=== PATIENT | female | born 1955 | race Caucasian/White ===

== ENCOUNTER → 2018-11-14 07:10 | Outpatient (CLI) | payer OTHER, SELFPAY ==
[2018-10-31 14:43] VITALS: BMI 32.5
[2018-11-13 14:32] VITALS: BMI 33.3
--- NOTE | 2018-11-14 18:33 | STRESSREP ---
Stress Test Report Exercise myocardial perfusion stress test. 63-year-old lady with a history of chest pain. Resting EKG demonstrates sinus bradycardia with a rate of 54 bpm normal intervals are noted resting blood pressure 120/78 mmHg. The patient exercised according to regular Paul protocol for a total duration of 9 minutes. The maximum heart rate attained was 136 bpm which was 85% of maximum predicted heart rate the maximum workload was 10.1 metabolic equivalents. At rest there were no ST to T wave changes noted suggest ischemia at peak exercise upsloping ST changes were noted with noted denote any ischemia. The resting blood pressure 120/78 with a peak blood pressure of 148/84. No clinical angina was noted. Myocardial perfusion protocol. 11.2 mCi of technetium 99m sestamibi was injected at rest. The patient exercised according to regular Paul protocol for total duration of 9 minutes at peak exercise 34.0 mCi of technetium 99m sestamibi was injected stress images were obtained stress and rest images were reconstructed and compared in the short axis vertical and horizontal long axis. Gated images were also obtained Perfusion SPECT analysis: Review of the stress images demonstrate normal uptake of tracer noted in all areas of the myocardium. The resting images similarly demonstrate normal uptake of tracer noted in all areas of the myocardium. No areas of reversibility are noted suggest ischemia no previous infarct is noted. Gated SPECT analysis: The gated ejection fraction is noted to be 76%. Conclusion: Normal exercise myocardial perfusion stress test at a high workload. Preserved ejection fraction. Good functional aerobic capacity.
== END ==
PROVIDERS: Family Provider Family Medicine; PCP Family Medicine; Referring Provider Internal Medicine Cardiovascular Disease; Visit Provider Internal Medicine Cardiovascular Disease
DX: I48.0 Paroxysmal atrial fibrillation (principal); R06.02 Shortness of breath
CPT/HCPCS: 78452; 93017; A9500; A4216

== ENCOUNTER → 2019-09-11 12:47 | Outpatient (REF) | payer OTHER, SELFPAY ==
[2019-09-05 10:14] VITALS: BMI 30.2
== END ==
LOC: CVS 12:47
PROVIDERS: PCP Family Medicine; Referring Provider Internal Medicine Cardiovascular Disease; Visit Provider Internal Medicine Cardiovascular Disease
DX: R55 Syncope and collapse (principal); I48.0 Paroxysmal atrial fibrillation
CPT/HCPCS: 93271

== ENCOUNTER → 2022-07-04 | Outpatient (CLI) | payer MEDICARE, SELFPAY ==
--- NOTE | 2022-07-04 16:07 | STRESSREP ---
Stress Test Report Exercise myocardial perfusion stress test. 67-year-old lady with a history of atrial fibrillation Stress protocol: Resting EKG demonstrates normal sinus rhythm at 73 bpm resting blood pressure is 112/78 mmHg. The patient exercised according to the regular Paul protocol for a total duration of 7 minutes and 15 seconds attaining a maximum heart rate of 148 bpm which was 95% of max impacted heart rate the maximum workload was 10.1 metabolic equivalents. At rest there were no ST or T wave changes noted suggest ischemia and at peak exercise upsloping ST changes only were noted we did not meet the criteria for ischemia. No clinical angina was noted the test was terminated due to the target heart rate being achieved. The peak blood pressure was 158/62 mmHg. Rate-pressure product was [20,000 . Conclusion: Normal exercise stress test at a high workload with no angina or arrhythmias and no atrial fibrillation noted.
== END | disposition home or self-care (01) ==
PROVIDERS: Referring Provider Internal Medicine Cardiovascular Disease; Visit Provider Internal Medicine Cardiovascular Disease
DX: I48.0 Paroxysmal atrial fibrillation (principal); R94.31 Abnormal electrocardiogram [ECG] [EKG]
CPT/HCPCS: 93017

== ENCOUNTER 2025-04-14 12:38 | Outpatient (CLI) | payer MEDICARE, SELFPAY ==
--- NOTE | 2025-04-14 12:46 | CT_ITS ---
PROCEDURE: LIMITED CHEST CT CARDIAC ONLY 04/14/2025 REASON FOR EXAM: ABNORMAL EKG TECHNIQUE: Procedure Code: [id number] Modality: CT Procedure: LIMITED CHEST CT CARDIAC ONLY CONTRAST: None One or more dose reduction techniques were used (e.g., Automated exposure control, adjustment of the mA and/or kV according to patient size, use of iterative reconstruction technique). RADIATION DOSE SUMMARY: CTDlvol: 12.19 mGy DLP: 243.79 mGycm COMPARISON: None FINDINGS: Mild atherosclerotic calcification of the aortic arch. Calcified right hilar lymph nodes. Calcified granuloma in the right lower lobe. Mild coronary artery calcification. The lung bases are clear. CT/Limited Chest CT Cardiac Only IMPRESSION: Coronary artery calcification. Reading Location: [place] [id number]
--- NOTE | 2025-04-17 11:32 | CA.SCORE ---
Calcium Scoring Date of Study:: 04/14/25 Indications Indications: Abnormal EKG Coronary Calcium Scoring: High-resolution Computed Tomographic imaging of the chest was performed on [04/14/2025], with particular attention paid to the coronary arteries. Images from the examination were analyzed for the presence and extent of coronary artery calcification , using coronary calcium quantification software. The patient tolerated the procedure well and there were no complications. The results of the coronary calcification analysis are provided below. Findings Coronary Artery Left Main (LM): 0 Left Anterior Descending (LAD): 62 Left Circumflex (LCX): 0.66 Right Coronary Artery (RCA): 0 Total Agatston Score: 62.66 Percentile Rankin-75 Calcium Scoring Interpretation: Different methods to categorize the overall amount of coronary plaque. Overall amount CAC SIS Visual of coronary plaque P1 Mild -100 <2 1-2 vessels with mild amount of plaque P2 Moderate 101-300 3-4 1-2 vessels with moderate amount, 3 vessels with mild amount of plaque P3 Severe 301-999 5-7 3 vessels with moderate amount, 1 vessel with severe amount of plaque P4 Extensive >1000 >8 2-3 vessels with severe amount of plaque Calcium Score: Mild: 1-2 vessels w/mild amount of plaque Conclusion: Mild focal atherosclerotic plaquing noted.
== END 2025-04-14 23:59 | disposition home or self-care (01) ==
PROVIDERS: Referring Provider Internal Medicine Cardiovascular Disease; Visit Provider Internal Medicine Cardiovascular Disease
DX: R94.31 Abnormal electrocardiogram [ECG] [EKG] (principal)
CPT/HCPCS: 75571; 76380